=== PATIENT | female | born 1935 | race Caucasian/White ===

== ENCOUNTER → 2019-07-12 | Outpatient (CLI) | payer MEDICARE, OTHER ==
[~2019-07-12] MED LIST: COLACE 100100 MG/CAP PO; IMODIUM 2MG CAPS2 MG; KLOR-CON M2020 MEQ PO; LASIX 20MG TABL20 MG; LASIX 20MG TABL20 MG PO; MULTI VITAMINS1 TAB PO; NO HOME MEDICATIONS; NORCO 325 MG-51 TAB PO; PERCOCET 325 MG1 TA2 PO; SODIUM BICARBO650 MG PO
== END ==
LOC: COL.RAD 21:34
DX: M79.89 Other specified soft tissue disorders (principal); R79.1 Abnormal coagulation profile

== ENCOUNTER 2020-06-07 13:46 | Inpatient (IN) | payer MEDICARE, OTHER ==
[~2020-06-07] VITALS: Ht 165.1 cm; Wt 47.0 kg
[2020-06-07 14:32] LABS: BASO % 0.3 % (0.0-2.0); GRAN # 7.3 (1.4-6.5); GRAN % 77.5 % (42.2-75.2); HEMATOCRIT 41.5 % (37.0-47.0); LYMPH # 1.5 (1.2-3.4); LYMPH % 15.4 % (20.0-51.0); MEAN CELL VOLUME 97 fl (80.0-100.0); MEAN CORPUSCULAR HEMOGLOBIN 30 pg (27.0-31.0); MEAN CORPUSCULAR HGB CONC 31 g/dl (33.0-37.0); MEAN PLATELET VOLUME 11.5 fl (7.4-10.4); MONO # 0.6 (0.1-0.6); MONO % 6.3 % (1.7-9.3); PLATELET COUNT 226 K/mm3 (130-400); RED BLOOD COUNT 4.28 M/mm3 (4.10-5.30); REDCELL DISTRIBUTION WIDTH-CV 14.6 % (11.5-14.5)
[2020-06-07 14:39] LABS: ALBUMIN 3.1 gm/dL (3.5-5.0); BILIRUBIN,TOTAL 0.4 mg/dL (0.0-1.0); TOTAL PROTEIN 6.3 gm/dL (6.4-8.2)
[2020-06-07 14:45] LABS: CREATININE, serum 10.12 (0.52-1.25)
[2020-06-07 14:51] LABS: TROPONIN-I 0.021 ng/mL (0.000-0.035)
[2020-06-07 15:18] LABS: COLLECTION METHOD CLEAN CATCH
[2020-06-07 15:26] LABS: BUDDING YEAST Present /hpf; HYALINE CAST >12 /lpf; PH 5 (5-8); SQUAMOUS EPITHELIAL None Seen /hpf; URINE APPEARANCE Turbid; URINE BACTERIA None Seen /hpf; URINE BILIRUBIN Negative (NEGATIVE); URINE BLOOD Negative (NEGATIVE); URINE COLOR Yellow; URINE GLUCOSE Negative (NEGATIVE); URINE KETONE Trace (NEGATIVE); URINE LEUKOCYTE ESTERASE 2+ (NEGATIVE); URINE NITRATE Positive (NEGATIVE); URINE PROTEIN(semi-quant) 2+ (NEGATIVE); URINE RBC 20-50 /hpf; URINE UROBILINOGEN Negative (NEGATIVE)
[2020-06-07 19:11] VITALS: BP 110/57; PULSE 76; TEMP 97.3
[2020-06-07 20:10] VITALS: BP 108/60; PULSE 76; TEMP 97.4
[2020-06-07] MEDS ORDERED: ARICEPT 5MG PO (21:33)
[2020-06-07] MEDS ORDERED: ZESTRIL 20MG TA20 MG PO (21:34)
[2020-06-07] MEDS ORDERED: NAMENDA 10MG TA10 MG PO (21:38)
[2020-06-07] MEDS ORDERED: TOPROL XL 25MG25 MG PO (21:39)
[2020-06-07] MEDS ORDERED: ASPIRIN 81M81 MG/TA2 PO (21:40)
[2020-06-07] MEDS ORDERED: VITAMIN D31000 IU PO (21:41)
[2020-06-07] MEDS ORDERED: LASIX 40MG TABL40 MG PO (21:45)
[2020-06-07 23:23] VITALS: BP 111/58; PULSE 78; TEMP 97.5
--- NOTE | 2020-06-08 02:22 | NUR ---
Patient admitted to medical floor room 309 from ER at 18:45 pm. Patient resting in bed with eyes closed upon enter the room. Patient opens eyes upon verbal and tactile stimulation. Patient alert and oriented to self only. Able to tell her name and date of . Oriented patient to the room. Patient denies any pain or discomfort. Denies SOB or dyspnea. Carpio in place and draining clear yellow urine. LR running at 125ml/hr to the right forearm at admission. Called patient's and get medication list updated. Call light within reach. Patient denies any needs at this time. Bed alarms on. Fall precaution maintained.
[2020-06-08 04:42] VITALS: BP 80/38; PULSE 72; TEMP 97.8
[2020-06-08 05:12] VITALS: BP 92/50; PULSE 72
--- NOTE | 2020-06-08 06:20 | NUR ---
Patient slept well throughout the night. Right forearm IV got pulled out. Patient does not remember what happened. New IV inserted to left hand. No c/o pain or discomfort. No acute distress noted. Bed alarms on. Call light within reach.
[2020-06-08 08:05] VITALS: BP 106/56; PULSE 80; TEMP 97.9
--- NOTE | 2020-06-08 09:34 | NUR ---
The patient is positive for COVID and has a history of dementia. ASHLEY contacted the patient's , Russ (ph#[phone]), to discuss discharge plan. The patient lives in [place] with her . Russ reports that the patient has been independent with ADLs and has a cane and walker. He states that an RN from [facility] visits the patient once a week. The patient's PCP is Dr. Ryan Kessler and she receives her medications from [facility]. The patient does not have a DPOA-HC in EMR, but Russ reports that the patient does have one completed and that it should be their daughter, Qian. Qian lives in [place]. He states that he may have the documents at home. Russ reports no concerns with the patient returning back home with him upon discharge. He states that he is considering having a friend come and stay with the patient when he is at dialysis. ASHLEY attempted to contact Dr. Kessler's office to inquire if they have a copy of the patient's DPOA-HC. ASHLEY left them a voicemail. ASHLEY contacted Iris at [facility]. Iris reports that they do not have the patient on for services. ASHLEY attempted to contacted Russ back to follow up on this. ASHLEY left him a voicemail.
--- NOTE | 2020-06-08 09:55 | NUR ---
Pt sleeping upon entry, easily awakened. No C\O pain at this time. Shift assessment complete, left Pt sleeping, bed in lowest position, alarm on, call light in reach.
--- NOTE | 2020-06-08 10:02 | NUR ---
[facility] contacted the medical unit for the patient. ASHLEY contacted Dayan at [facility]. Dayan confirms that they provide the RN services for the patient and can resume services upon discharge. ASHLEY faxed updates to [facility].
[2020-06-08 12:52] VITALS: BP 117/53; PULSE 79; TEMP 97.7
[2020-06-08 13:09] LABS: BASO % 0.3 % (0.0-2.0); EOS % 0.2 % (0-4.0); GRAN # 7.6 (1.4-6.5); GRAN % 73.7 % (42.2-75.2); HEMOGLOBIN 11.8 g/dl (12.5-16.0); LYMPH # 1.7 (1.2-3.4); MEAN CELL VOLUME 95 fl (80.0-100.0); MEAN CORPUSCULAR HEMOGLOBIN 31 pg (27.0-31.0); MEAN CORPUSCULAR HGB CONC 32 g/dl (33.0-37.0); MEAN PLATELET VOLUME 11.2 fl (7.4-10.4); MONO # 0.9 (0.1-0.6); MONO % 8.4 % (1.7-9.3); PLATELET COUNT 239 K/mm3 (130-400); RED BLOOD COUNT 3.85 M/mm3 (4.10-5.30); REDCELL DISTRIBUTION WIDTH-CV 14.6 % (11.5-14.5)
[2020-06-08 13:11] LABS: HEMATOCRIT 36.4 % (37.0-47.0)
[2020-06-08 13:33] LABS: URINE PROTEIN:CREAT RATIO 1.81 (0.00-0.14)
[2020-06-08 14:34] LABS: CREATININE, serum 8.02 (0.52-1.25); POTASSIUM 4.8 mmol/L (3.4-5.0)
[2020-06-08 14:35] LABS: CALCIUM 7.8 mg/dL (8.4-10.2)
[2020-06-08 17:38] VITALS: BP 114/57; PULSE 77; TEMP 98
--- NOTE | 2020-06-08 18:45 | NUR ---
Pt rtesting in the room today, moved from room 309 to 315 this afternoon, Pt currently on room air, VS have remained stable.
[2020-06-08 20:00] VITALS: BP 102/56; PULSE 70; TEMP 98.6
--- NOTE | 2020-06-08 23:00 | NUR ---
Patient laying in bed with eyes closed upon enter the room. Patient opens eyes with verbal and tactile stimulation. Patient alert and partially oriented. Able to tell her name, date of , her husban's name, and also told this nurse that she lives in [place]. Patient denies any pain or discomfort. All scheduled meds given at this time. Crushed meds and given in applesauce. Patient took medications without difficulty. IV fluid running well to left hand IV site. Left hand IV site has no s/s of complications. Patient had incontinent BM at this time. Changed incontinent brief and rashmi-care provided. Carpio care provided as well. Carpio in place and draining cloudy yellow urine. Call light within reach. Patient denies any needs at this time.
[2020-06-09 00:07] VITALS: BP 92/50; PULSE 54; TEMP 98.2
[2020-06-09 04:11] VITALS: BP 106/60; PULSE 87; TEMP 97.5
--- NOTE | 2020-06-09 05:53 | NUR ---
Patient use call light to call for nurse several times. Patient asked about how to turn on TV, and asked to have orange juice. 8 oz of orange juice offered and patient use straw to drink orange juice without any difficulty. Patient denies pain or discomfort. Call light within reach. Patient denies further needs at this time.
[2020-06-09 07:54] VITALS: BP 104/53; PULSE 81; TEMP 97.5
[2020-06-09 08:20] LABS: BASO % 0.1 % (0.0-2.0); EOS % 0.4 % (0-4.0); GRAN # 4.7 (1.4-6.5); GRAN % 69.4 % (42.2-75.2); HEMOGLOBIN 10.9 g/dl (12.5-16.0); LYMPH # 1.4 (1.2-3.4); MEAN CELL VOLUME 97 fl (80.0-100.0); MEAN CORPUSCULAR HEMOGLOBIN 30 pg (27.0-31.0); MEAN CORPUSCULAR HGB CONC 31 g/dl (33.0-37.0); MEAN PLATELET VOLUME 10.5 fl (7.4-10.4); MONO # 0.6 (0.1-0.6); MONO % 9.4 % (1.7-9.3); PLATELET COUNT 218 K/mm3 (130-400); REDCELL DISTRIBUTION WIDTH-CV 14.6 % (11.5-14.5)
[2020-06-09 08:25] LABS: HEMATOCRIT 34.8 % (37.0-47.0)
[2020-06-09 08:34] LABS: ALBUMIN 2.2 gm/dL (3.5-5.0); CALCIUM 7.4 mg/dL (8.4-10.2); CREATININE, serum 6.15 (0.52-1.25); PHOSPHOROUS 5.8 mg/dL (2.5-4.5); POTASSIUM 4.5 mmol/L (3.4-5.0)
--- NOTE | 2020-06-09 10:18 | NUR ---
PT is recommending SNF or SB. SW contacted the patient's daughter, Qian (ph#[phone]), to discuss their recommendation. Qian is agreeable to SNF. She states that she needs to talk to her father about the options, but believes he would prefer [facility] and [facility]. SW contacted and faxed a referral to [facility]. Awaiting screens.
--- NOTE | 2020-06-09 11:19 | NUR ---
[facility] requires the patient's positive COVID results from back in March. SW attempted to contact the patient's PCP's office. ASHLEY left them a voicemail.
--- NOTE | 2020-06-09 11:19 | NUR ---
Pt awake and alert upon entry, assisted Pt to bedside commode with assistance of Phy Therapy. No C/O pain at this time. Shift assessment complete, left Pt call light in reach, bed in lowest position.
[2020-06-09 11:57] VITALS: BP 119/71; PULSE 81; TEMP 97.3
[2020-06-09 15:48] VITALS: BP 118/78; PULSE 70
--- NOTE | 2020-06-09 16:29 | NUR ---
Lashawn, at [facility], reports that they have had the patient in the past and that they are interested in the patient. She needs to check with her supervisors on whether they could take a patient that is still testing positive for COVID.
[2020-06-09 21:48] VITALS: BP 82/51; PULSE 88; TEMP 98.5
[2020-06-10] VITALS (7 sets, daily range): BP systolic 105–131; BP diastolic 61–76; PULSE 78–95; TEMP 97.5–98.2
--- NOTE | 2020-06-10 01:36 | NUR ---
Patient laying in bed with eyes closed upon enter the room. Patient opens eyes with verbal stimulation. Patient alert and partially oriented. Dinner tray at bedside, and patient refused dinner. Offered strawberry Ensure, patient drank 70% of Ensure. Carpio catheter in place and draining clear yellow urine. All scheduled meds given per JUL. Received phone call from patient's daughter and gave her update regarding patient's condition. Call light within reach. Patient denies any needs at this time.
[2020-06-10 07:50] LABS: ALBUMIN 2.2 gm/dL (3.5-5.0); CALCIUM 7.8 mg/dL (8.4-10.2); CREATININE, serum 4.29 (0.52-1.25); PHOSPHOROUS 4.4 mg/dL (2.5-4.5); POTASSIUM 4.4 mmol/L (3.4-5.0)
--- NOTE | 2020-06-10 10:10 | NUR ---
Pt awake upon entry, answers questions appropriately, has some confusion. medications given whole, Pt took without issue. Urine in catheter bag clear yellow. Shift assessments complete, left Pt call light in reach, bed in lowest position, alarm on.
--- NOTE | 2020-06-10 14:19 | NUR ---
Mercedes, wrapper caser at [facility], was contacted and faxed the patient's COVID results to [facility]. ASHLEY provided Mercedes with the medical unit fax number to fax the results to as well. The patient is to tentatively d/c tomorrow. ASHLEY notified and faxed updates to Louisa at [facility]. Louisa reports that they want to make sure the patient is voiding okay before coming, otherwise they are good to accept. ASHLEY attempted to contact and update the patient's daughter, Qian, and . ASHLEY left them voicemails.
--- NOTE | 2020-06-10 22:44 | NUR ---
Patient laying in bed upon enter the room. 1/2 NS running via left hand. Noticed left hand IV site was infiltrated. Left hand swollen. Elevated left hand on the pillow and ice-pack applied. Restarted IV to right forearm. Patient alert and oriented to person only. Patient denies pain or discomfort. Received phone call from patient's and gave patient's update on how patient is doing. Scheduled meds given per JUL. Offered 240ml of orange juice with medication. Patient drank most of juice offered. Call light within reach. Patient denies any needs at this time.
[2020-06-11 03:13] VITALS: BP 102/70; PULSE 69; TEMP 97.8
--- NOTE | 2020-06-11 05:50 | NUR ---
Patient slept well over the night. Incontinent brief changed x1 over the night. Patient was incontinent of urine and BM. Patient denies any pain or discomfort. Call light within reach. Will give report to day shift nurse.
[2020-06-11 06:57] LABS: BASO % 0.5 % (0.0-2.0); EOS # 0.1 (0.0-0.7); EOS % 1.9 % (0-4.0); GRAN # 3.5 (1.4-6.5); GRAN % 59.2 % (42.2-75.2); HEMOGLOBIN 11.6 g/dl (12.5-16.0); LYMPH # 1.6 (1.2-3.4); LYMPH % 26.5 % (20.0-51.0); MEAN CELL VOLUME 98 fl (80.0-100.0); MEAN CORPUSCULAR HEMOGLOBIN 31 pg (27.0-31.0); MEAN CORPUSCULAR HGB CONC 32 g/dl (33.0-37.0); MONO # 0.7 (0.1-0.6); MONO % 11.1 % (1.7-9.3); PLATELET COUNT 215 K/mm3 (130-400); REDCELL DISTRIBUTION WIDTH-CV 14.7 % (11.5-14.5)
[2020-06-11 07:07] LABS: ALBUMIN 2.1 gm/dL (3.5-5.0); CALCIUM 7.5 mg/dL (8.4-10.2); CREATININE, serum 2.85 (0.52-1.25); PHOSPHOROUS 3.5 mg/dL (2.5-4.5); POTASSIUM 4.9 mmol/L (3.4-5.0)
[2020-06-11 07:12] LABS: HEMATOCRIT 36.2 % (37.0-47.0)
[2020-06-11 08:01] VITALS: BP 115/79; PULSE 82; TEMP 97.6
--- NOTE | 2020-06-11 08:30 | NUR ---
PT ALERT WHEN NAME WAS CALLED, FALLS ASLEEP DURING VISIT IN ROOM, PT ORIENTED TO SELF ONLY, L MANAGER MERCHANDISING WEAKER THAN RIGHT, L HAND LOOKED MORE EDEMATOUS, VITALS REVIEWED, MEDICATIONS GIVEN, NO OTHER NEEDS.
[2020-06-11 11:31] VITALS: BP 112/75; PULSE 75; TEMP 97.7
--- NOTE | 2020-06-11 12:34 | NUR ---
BROUGHT IN ORANGE JUICE PER PT REQUEST, PT DENYING PAIN, ALERT TO SELF.
--- NOTE | 2020-06-11 13:03 | NUR ---
ASHLEY faxed updates to Louisa at [facility]. Louisa reports that they are able to accept the patient for a skilled stay. ASHLEY attempted to contact the patient's , daughter (Qian), and daughter (Gosia). ASHLEY left them all voicemails.
--- NOTE | 2020-06-11 14:29 | NUR ---
ASHLEY was able to get in contact with the patient's , Russ, via his cell phone. SW updated him on the d/c plan and of [facility] acceptance. Russ is in agreement with the patient going to [facility]. ASHLEY read the IM form outloud to Russ. Russ verbalized understanding and gave SW approval to sign the form on his behalf.
[2020-06-11 15:34] VITALS: BP 100/62; PULSE 77; TEMP 97.6
--- NOTE | 2020-06-11 18:00 | NUR ---
PT PLEASANT, ALERT TO SELF, LIKES OJ, HAVING DIARRHEA NEW ONSET, PLAN TO DC TOMORROW, PT STANDBY ASSIST, DENYING PAIN, NO OTHER NEEDS.
--- NOTE | 2020-06-11 18:40 | NUR ---
RECEIVED CHANGE OF SHIFT REPORT FROM DAY SHIFT NURSE.
--- NOTE | 2020-06-11 20:00 | NUR ---
PATIENT DENIES ANY NEEDS AT THIS TIME. TELE IN PLACE. SALINE LOCK TO RFA INTACT AND FLUSHES WELL. DEPENDS DRY AT THIS TIME. BED ALARM ON WHILE PATIENT RESTING IN BED.
[2020-06-11 20:56] VITALS: BP 124/80; PULSE 84; TEMP 97.3
[2020-06-11 23:09] VITALS: BP 127/84; PULSE 69; TEMP 97.6
[2020-06-12 03:39] VITALS: BP 116/62; PULSE 63; TEMP 97.4
[2020-06-12 06:19] LABS: BASO % 0.3 % (0.0-2.0); EOS # 0.1 (0.0-0.7); EOS % 1.9 % (0-4.0); GRAN # 3.7 (1.4-6.5); HEMOGLOBIN 11.3 g/dl (12.5-16.0); LYMPH # 1.4 (1.2-3.4); LYMPH % 24.7 % (20.0-51.0); MEAN CELL VOLUME 96 fl (80.0-100.0); MEAN CORPUSCULAR HEMOGLOBIN 31 pg (27.0-31.0); MEAN CORPUSCULAR HGB CONC 32 g/dl (33.0-37.0); MEAN PLATELET VOLUME 10.4 fl (7.4-10.4); MONO # 0.6 (0.1-0.6); MONO % 9.6 % (1.7-9.3); PLATELET COUNT 209 K/mm3 (130-400); RED BLOOD COUNT 3.64 M/mm3 (4.10-5.30); REDCELL DISTRIBUTION WIDTH-CV 14.8 % (11.5-14.5)
[2020-06-12 06:30] LABS: ALBUMIN 2.2 gm/dL (3.5-5.0); CALCIUM 7.8 mg/dL (8.4-10.2); CREATININE, serum 2.4 (0.52-1.25); PHOSPHOROUS 3.1 mg/dL (2.5-4.5)
[2020-06-12 06:38] LABS: HEMATOCRIT 35.1 % (37.0-47.0)
--- NOTE | 2020-06-12 06:54 | NUR ---
PT SLEEPING IN ROOM COMFORTABLY
--- NOTE | 2020-06-12 07:38 | NUR ---
CHANGE OF SHIFT REPORT GIVEN TO DAY SHIFT NURSE
[2020-06-12 08:16] VITALS: BP 120/75; PULSE 84; TEMP 97.6
--- NOTE | 2020-06-12 08:29 | NUR ---
The patient's daughter, Gosia, returned ASHLEY's phone call. ASHLEY updated her about the d/c plan. Gosia is also agreeable for the patient to go to [facility].
--- NOTE | 2020-06-12 08:44 | NUR ---
PT IN ROOM SLEEPING, BROUGHT IN ORANGE JUICE PER PT PREFERENCE, GAVE MORNING MEDICATIONS, PT ALERT TO SELF AND CURRENT MONTH BUT NOT PLACE OR SITUATION. CALL LIGHT NEXT TO PT IN THE BED, WARM BLANKET BROUGHT IN, PT CLOSING EYES TO GO BACK TO SLEEP UPON EXITING. NO OTHER NEEDS.
[2020-06-12] MEDS ORDERED: SODIUM BICARBO650 MG PO (11:13)
--- NOTE | 2020-06-12 11:32 | NUR ---
The patient is to discharge today, 06/12, to [facility] for a skilled stay. Transportation was tentatively scheduled at 1330, via [facility]. ASHLEY informed the patient's RN and her of the time. They were both agreeable to the time. SW attempted to update the patient's daughter, Qian. SW left her a voicemail. No additional needs at this time.
[2020-06-12 11:59] VITALS: BP 120/75; PULSE 84; TEMP 97.6
--- NOTE | 2020-06-12 12:04 | NUR ---
ATTEMPTED TO CALL REPORT, NURSE WAS BUSY SO LEFT NAME AND NUMBER FOR HER TO CALL ME BACK
[2020-06-12 12:45] VITALS: BP 117/67; PULSE 75; TEMP 97.8
--- NOTE | 2020-06-12 13:45 | NUR ---
PT TAKEN DOWN VIA WHEELCHAIR, IV REMOVED, PT DRESSED, PACKET OF DISCHARGE PAPERWORK TAKEN WITH PT, PT UPSET SHE DID NOT GET TO FINISH LUNCH, NO OTHER NEEDS.
== END 2020-06-12 13:45 | DRG 682 ==
LOC: COL.ER 13:46 → MEDICAL 16:35
PROVIDERS: Hospitalist; Internal Medicine Nephrology; Physician Assistant; ADMIT Student in an Organized Health Care Education/Training Program
DX: N17.9 Acute kidney failure, unspecified (principal); G93.41 Metabolic encephalopathy; E87.2 Acidosis; I50.32 Chronic diastolic (congestive) heart failure; N39.0 Urinary tract infection, site not specified; I13.0 Hypertensive heart and chronic kidney disease with heart failure and stage 1 through stage 4 chronic kidney disease, or unspecified chronic kidney disease; F03.90 Unspecified dementia, unspecified severity, without behavioral disturbance, psychotic disturbance, mood disturbance, and anxiety; E86.0 Dehydration; N18.2 Chronic kidney disease, stage 2 (mild); Z86.16 Personal history of COVID-19; Z87.891 Personal history of nicotine dependence
CPT/HCPCS: 99223-AI; 99232-AI; 99239; J0692; J0696; J7030; J7120